=== PATIENT | male | born 1990 | race Caucasian/White ===

== ENCOUNTER 2021-09-18 17:09 | Emergency (ER) | payer BC ==
--- NOTE | 2021-09-18 19:03 | EDM.PDOCBH ---
ED HPI GENERAL MEDICAL PROBLEM - General Chief Complaint: Behavioral/Psych Stated Complaint: SUICIDAL Time Seen by Provider: 09/18/21 17:25 Source of Information: Reports: Patient History Limitations: Reports: No Limitations - History of Present Illness INITIAL COMMENTS - FREE TEXT/NARRATIVE: c/o suicidal ideation pt states he planned to shot himself but "something kept me from doing it," he texted his who called police police found a gun in his car and confiscated other guns from his house, police bring him here pt has had suicidal thought in the past altho not acted on them as he did today his filed for divorce this week he has gone to counseling 8-10x in the past 6m at [facility] in [place] altho not in past 2m as his counselor had surgery, he has no appointment coming up his had gone with him initially, it was her idea, yet stopped going because she was not sure they could afford it pt has 3 children: girl 6 yo, boy 4 yo, girl 2 yo pt's parents when he was 6 yo, he thinks about his son who looks like him and is now going through the same experience of parents which he found to be quite painful 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, 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, 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 for a ivey prior to that he states that he does not feel safe his PCP began citalopram 3m ago, initially 10 mg/d, then inc'd to 20 mg/d, he did not take it the past 2 days "for some reason" he had COVID 1m ago, sick for 3-4d with fever and malaise and myalgias, no sxs now, not had the COVID vax he says he has issues with anger and lying which he "is working on" he used to chew tobacco and would then lie to his when she asked and say he was not he stopped drinking alcohol 1.5m ago, no cigs/street drugs - Related Data Allergies Allergy/AdvReac Type Severity Reaction Status Date / Time No Known Allergies Allergy Verified 09/18/21 18:22 Home Meds: Home Meds Omeprazole 20 mg PO DAILY 09/19/21 [History] hydrOXYzine pamoate [Hydroxyzine Pamoate] 50 mg PO Q6H PRN 09/19/21 [History] Past Medical History - Past Health History Medical/Surgical History: Denies Medical/Surgical History Social & Family History - Living Situation & Occupation Living situation: Reports: ED ROS GENERAL - Review of Systems Review Of Systems: See Below Constitutional: Reports: No Symptoms HEENT: Reports: No Symptoms Respiratory: Reports: No Symptoms Cardiovascular: Reports: No Symptoms Endocrine: Reports: No Symptoms GI/Abdominal: Reports: No Symptoms : Reports: No Symptoms Musculoskeletal: Reports: No Symptoms Skin: Reports: No Symptoms Neurological: Reports: No Symptoms Psychiatric: Reports: Suicidal Ideation Hematologic/Lymphatic: Reports: No Symptoms Immunologic: Reports: No Symptoms ED EXAM, BEHAVIORAL HEALTH - Physical Exam Exam: See Below Exam Limited By: No Limitations General Appearance: Alert, WD/WN, Other (conversant, answers questions, does not appear evasive, rubbing his hands, mildly anxious) Ears: Hearing Grossly Normal Throat/Mouth: Normal Inspection, Normal Voice Head: Atraumatic, Normocephalic Neck: Normal Inspection, Supple, Non-Tender, Full Range of Motion. No: Lymphadenopathy (R), Lymphadenopathy (L) Respiratory/Chest: No Respiratory Distress, Lungs Clear, Normal Breath Sounds, No Accessory Muscle Use, Chest Non-Tender Cardiovascular: Regular Rate, Rhythm, No Edema, No Gallop, No JVD, Gallop/S3 GI/Abdominal: Soft, Non-Tender, No Distention Back Exam: Normal Inspection, Full Range of Motion Extremities: Normal Inspection, Normal Range of Motion, Non-Tender, No Pedal Edema Neurological: Alert, CN II-XII Intact, Normal Gait, No Motor/Sensory Deficits, Oriented x 3 Psychiatric: Alert, Suicidal Plan, Suicidal Thoughts, Other (rather flat affect). No: Incoherent, Tearful, Agitated, Inattentive, Non-Communicative, Tangential Thoughts, Auditory Hallucinations, Visual Hallucinations, Grandiose Thoughts, Pressured Speech, Paranoid Thoughts #1 Interpretation EKG Date: 09/18/21 Time: 20:50 Rhythm: NSR Rate (Beats/Min): 81 [place]: Normal P-Wave: Present QRS: Normal Comparison: NA - No Prior EKG (normal EKG, no ST/ischemic changes) COURSE, BEHAVIORAL HEALTH COMP - Course Vital Signs: Last Vital Signs Temp 37.1 C 09/19/21 11:30 Pulse 86 09/19/21 11:30 Resp 16 11/06/21 11:30 BP 149/93 H 09/19/21 11:30 Pulse Ox 98 09/19/21 11:30 Orders, Labs, Meds: Active Orders 24 hr Category Date Time Status Pantoprazole [ProTONIX] Med 09/19/21 06:00 Active 40 mg PO 0600 EKG 12 Lead [EK] Routine Ther 09/18/21 18:43 Ordered Medication Orders Pantoprazole Sodium (Pantoprazole 40 Mg Tab.Cr) 40 mg PO 0600 JASPREET Last Admin: 09/19/21 10:17 Dose: 40 mg Documented by: GRUPO Laboratory Tests 09/18/21 09/18/21 09/18/21 Range/Units 19:05 19:12 19:12 WBC 8.5 (3.2-10.1) x10-3/uL RBC 5.23 (3.90-5.90) x10(6)uL Hgb 15.1 (12.9-17.7) g/dL Hct 45.2 (38.3-50.1) % MCV 86.4 (80.8-98.7) fL MCH 28.9 (27.0-33.3) pg MCHC 33.5 (28.7-35.3) g/dL RDW 13.1 (12.4-15.0) % Plt Count 228 (117-477) x10(3)uL MPV 8.5 (6.7-11.0) fL Neut % (Auto) 69.7 (40.3-71.8) % Lymph % (Auto) 22.4 (15.8-45.3) % [place] % (Auto) 6.6 (5.5-15.2) % Eos % (Auto) 1.0 (0.1-6.8) % Baso % (Auto) 0.3 (0.3-3.8) % Neut # (Auto) 5.9 (1.7-6.9) x10-3/uL Lymph # (Auto) 1.9 (0.5-4.5) x10-3/uL [place] # (Auto) 0.6 (0.0-1.2) x10-3/uL Eos # (Auto) 0.1 (0.0-0.6) x10-3/uL Baso # (Auto) 0.0 (0.0-0.3) x10-3/uL Sodium 142 (135-145) mmol/L Potassium 3.7 (3.5-5.3) mmol/L Chloride 103 (100-110) mmol/L Carbon Dioxide 32 (21-32) mmol/L BUN 9 (7-18) mg/dL Creatinine 0.9 (0.70-1.30) mg/dL Est Cr Clr Drug Dosing TNP Estimated GFR (MDRD) > 60 (>60) BUN/Creatinine Ratio 10.0 (9-20) Glucose 98 (80-116) mg/dL Calcium 9.0 (8.6-10.2) mg/dL Total Bilirubin 0.5 (0.1-1.3) mg/dL AST 17 (5-25) IU/L ALT 31 (12-36) U/L Alkaline Phosphatase 76 (56-112) IU/L Troponin I (4.0-60.3) pg/mL C-Reactive Protein (0.5-0.9) mg/dL Total Protein 8.3 H (6.0-8.0) g/dL Albumin 4.6 (3.5-5.2) g/dL Globulin 3.7 g/dL Albumin/Globulin Ratio 1.2 TSH, Ultra Sensitive (0.36-3.74) IU/mL Urine Color (YELLOW) Urine Appearance (CLEAR) Urine pH (5.0-6.5) Ur Specific [place] (1.010-1.025) Urine Protein (NEGATIVE) mg/dL Urine Glucose (UA) (NORMAL) mg/dL Urine Ketones (NEGATIVE) mg/dL Urine Occult Blood (NEGATIVE) Urine Nitrite (NEGATIVE) Urine Bilirubin (NEGATIVE) Urine Urobilinogen (NEGATIVE) mg/dL Ur Leukocyte Esterase (NEGATIVE) Urine RBC (0-5) Urine WBC (0-5) Ur Squamous Epith Cells (NS,R,O) Urine Bacteria (NS) Salicylates 0.9 L (<2.8) mg/dL Urine Opiates Screen (NEGATIVE) Ur Buprenorphine Scrn (NEGATIVE) Ur Oxycodone Screen (NEGATIVE) Urine Methadone Screen (NEGATIVE) Ur Propoxyphene Screen (NEGATIVE) Acetaminophen < 2 L (<2) ug/mL Ur Barbiturates Screen (NEGATIVE) Ur Tricyclics Screen (NEGATIVE) Ur Phencyclidine Scrn (NEGATIVE) Ur Amphetamine Screen (NEGATIVE) U Methamphetamines Scrn (NEGATIVE) U Benzodiazepines Scrn (NEGATIVE) U Cocaine Metab Screen (NEGATIVE) U Marijuana (THC) Screen (NEGATIVE) Ethyl Alcohol (<0.03) % SARS-CoV-2 RNA (DEBBI) Positive H (NEGATIVE) 09/18/21 09/18/21 09/18/21 Range/Units 19:12 20:25 20:25 WBC (3.2-10.1) x10-3/uL RBC (3.90-5.90) x10(6)uL Hgb (12.9-17.7) g/dL Hct (38.3-50.1) % MCV (80.8-98.7) fL MCH (27.0-33.3) pg MCHC (28.7-35.3) g/dL RDW (12.4-15.0) % Plt Count (117-477) x10(3)uL MPV (6.7-11.0) fL Neut % (Auto) (40.3-71.8) % Lymph % (Auto) (15.8-45.3) % [place] % (Auto) (5.5-15.2) % Eos % (Auto) (0.1-6.8) % Baso % (Auto) (0.3-3.8) % Neut # (Auto) (1.7-6.9) x10-3/uL Lymph # (Auto) (0.5-4.5) x10-3/uL [place] # (Auto) (0.0-1.2) x10-3/uL Eos # (Auto) (0.0-0.6) x10-3/uL Baso # (Auto) (0.0-0.3) x10-3/uL Sodium (135-145) mmol/L Potassium (3.5-5.3) mmol/L Chloride (100-110) mmol/L Carbon Dioxide (21-32) mmol/L BUN (7-18) mg/dL Creatinine (0.70-1.30) mg/dL Est Cr Clr Drug Dosing Estimated GFR (MDRD) (>60) BUN/Creatinine Ratio (9-20) Glucose (80-116) mg/dL Calcium (8.6-10.2) mg/dL Total Bilirubin (0.1-1.3) mg/dL AST (5-25) IU/L ALT (12-36) U/L Alkaline Phosphatase (56-112) IU/L Troponin I < 4.0 L (4.0-60.3) pg/mL C-Reactive Protein < 0.2 L (0.5-0.9) mg/dL Total Protein (6.0-8.0) g/dL Albumin (3.5-5.2) g/dL Globulin g/dL Albumin/Globulin Ratio TSH, Ultra Sensitive 0.67 (0.36-3.74) IU/mL Urine Color Yellow (YELLOW) Urine Appearance Clear (CLEAR) Urine pH 6.0 (5.0-6.5) Ur Specific [place] 1.025 (1.010-1.025) Urine Protein Negative (NEGATIVE) mg/dL Urine Glucose (UA) Normal (NORMAL) mg/dL Urine Ketones Negative (NEGATIVE) mg/dL Urine Occult Blood Negative (NEGATIVE) Urine Nitrite Negative (NEGATIVE) Urine Bilirubin Negative (NEGATIVE) Urine Urobilinogen 1 H (NEGATIVE) mg/dL Ur Leukocyte Esterase Negative (NEGATIVE) Urine RBC 0-5 (0-5) Urine WBC 0-5 (0-5) Ur Squamous Epith Cells Rare (NS,R,O) Urine Bacteria Occasional H (NS) Salicylates (<2.8) mg/dL Urine Opiates Screen Negative (NEGATIVE) Ur Buprenorphine Scrn Negative (NEGATIVE) Ur Oxycodone Screen Negative (NEGATIVE) Urine Methadone Screen Negative (NEGATIVE) Ur Propoxyphene Screen Negative (NEGATIVE) Acetaminophen (<2) ug/mL Ur Barbiturates Screen Negative (NEGATIVE) Ur Tricyclics Screen Negative (NEGATIVE) Ur Phencyclidine Scrn Negative (NEGATIVE) Ur Amphetamine Screen Negative (NEGATIVE) U Methamphetamines Scrn Negative (NEGATIVE) U Benzodiazepines Scrn Negative (NEGATIVE) U Cocaine Metab Screen Negative (NEGATIVE) U Marijuana (THC) Screen Negative (NEGATIVE) Ethyl Alcohol < 0.03 (<0.03) % SARS-CoV-2 RNA (DEBBI) (NEGATIVE) Medications Generic Name Dose Route Start Last Admin Trade Name Freq PRN Reason Stop Dose Admin Pantoprazole Sodium 40 mg 09/19/21 06:00 09/19/21 10:17 Pantoprazole 40 Mg Tab.Cr PO 40 mg 0600 JASPREET Administration Re-Assessment/Re-Exam: Oly from [facility] did an assessment, thinks pt needs an admission, says "he put the bullet in the gun for a reason" 09-19-21 at 12:45p, accepted by Vivek Voss, pt has been cooperative Departure - Departure Time of Disposition: 13:07 Disposition: DC/Tfer to Psych Hosp/Unit 65 Condition: Serious Clinical Impression: Suicide attempt, Suicidal ideation, Stress due to marital problems - Discharge Information *PRESCRIPTION DRUG MONITORING PROGRAM REVIEWED*: Not Applicable *COPY OF PRESCRIPTION DRUG MONITORING REPORT IN PATIENT DAMARIS: Not Applicable Referrals: Patricia Mckoy PA-C [Primary Care Provider] - Forms: ED Department Discharge Sepsis Event Note (ED) - Focused Exam Vital Signs: Vital Signs Temp Pulse Resp BP Pulse Ox 09/19/21 11:30 37.1 C 86 16 149/93 H 98 - My Orders Last 24 Hours: My Active Orders 09/18/21 18:43 EKG 12 Lead [EK] Routine 09/19/21 06:00 Pantoprazole [ProTONIX] 40 mg PO 0600 - Assessment/Plan Last 24 Hours: My Active Orders 09/18/21 18:43 EKG 12 Lead [EK] Routine 09/19/21 06:00 Pantoprazole [ProTONIX] 40 mg PO 0600
[2021-09-18 19:56] LABS: ACETAMINOPHEN < 2 ug/mL (<2)
--- NOTE | 2021-09-18 22:20 | EDM.PDOC ---
ED HPI GENERAL MEDICAL PROBLEM - General Chief Complaint: Behavioral/Psych Stated Complaint: SUICIDAL Time Seen by Provider: 09/18/21 17:25 Source of Information: Reports: Patient History Limitations: Reports: No Limitations, Other (NOTE: this is an inadvertent duplicate of another note for the same date, see that date for details) - History of Present Illness INITIAL COMMENTS - FREE TEXT/NARRATIVE: c/o suicidal ideation pt states he planned to shot himself but "something kept me from doing it," he texted his who called police police found a gun in his car and confiscated other guns from his house, police bring him here pt has had suicidal thought in the past altho not acted on them as he did today his filed for divorce this week he has gone to counseling 8-10x in the past 6m at 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 prior to that he states that he does not feel safe his PCP began citalopram 3m ago, initially 10 mg/d, then inc'd to 20 mg/d, he did not take it the past 2 days "for some reason" he had COVID 1m ago, sick for 3-4d with fever and malaise and myalgias, no sxs now, not had the COVID vax he says he has issues with anger and lying which he "is working on" he used to chew tobacco and would then lie to his when she asked and say he was not he stopped drinking alcohol 1.5m ago, no cigs/street drugs - Related Data Allergies Allergy/AdvReac Type Severity Reaction Status Date / Time No Known Allergies Allergy Verified 09/18/21 18:22 Home Meds: Home Meds Omeprazole 20 mg PO DAILY 09/19/21 [History] hydrOXYzine pamoate [Hydroxyzine Pamoate] 50 mg PO Q6H PRN 09/19/21 [History] Past Medical History - Past Health History Medical/Surgical History: Denies Medical/Surgical History Psychiatric History: Reports: Anxiety, Depression - Infectious Disease History Infectious Disease History: Reports: Chicken Pox Social & Family History - Tobacco Use Tobacco Use Status *Q: Current Every Day Tobacco User Years of Tobacco use: 1 Packs/Tins Daily: 0.5 - Caffeine Use Caffeine Use: Reports: Coffee, Soda, Tea - Recreational Drug Use Recreational Drug Use: No - Living Situation & Occupation Living situation: Reports: ED ROS GENERAL - Review of Systems Review Of Systems: See Below (this is a duplicate note, see other note) ED EXAM, GENERAL - Physical Exam Exam: See Below Exam Limited By: No Limitations General Appearance: Alert, WD/WN, Other (conversant, answers questions, does not appear evasive, rubbing his hands, mildly anxious) Ears: Hearing Grossly Normal Throat/Mouth: Normal Inspection, Normal Voice Head: Atraumatic, Normocephalic Neck: Normal Inspection, Supple, Non-Tender, Full Range of Motion. No: Lymphadenopathy (R), Lymphadenopathy (L) Respiratory/Chest: No Respiratory Distress, Lungs Clear, Normal Breath Sounds, No Accessory Muscle Use, Chest Non-Tender Cardiovascular: Regular Rate, Rhythm, No Edema, No Gallop, No JVD, Gallop/S3 GI/Abdominal: Soft, Non-Tender, No Distention Back Exam: Normal Inspection, Full Range of Motion Extremities: Normal Inspection, Normal Range of Motion, Non-Tender, No Pedal Edema Course - Vital Signs Last Recorded V/S: Last Vital Signs Temp 37.1 C 09/19/21 11:30 Pulse 86 09/19/21 11:30 Resp 16 09/19/21 11:30 BP 149/93 H 09/19/21 11:30 Pulse Ox 98 09/19/21 11:30 - Orders/Labs/Meds Orders: Active Orders 24 hr Category Date Time Status Pantoprazole [ProTONIX] Med 09/19/21 06:00 Active 40 mg PO 0600 EKG 12 Lead [EK] Routine Ther 09/18/21 18:43 Ordered Medication Orders Pantoprazole Sodium (Pantoprazole 40 Mg Tab.Cr) 40 mg PO 0600 JASPREET Last Admin: 09/19/21 10:17 Dose: 40 mg Documented by: GRUPO Labs: Laboratory Tests 09/18/21 09/18/21 09/18/21 Range/Units 19:05 19:12 19:12 WBC 8.5 (3.2-10.1) x10-3/uL RBC 5.23 (3.90-5.90) x10(6)uL Hgb 15.1 (12.9-17.7) g/dL Hct 45.2 (38.3-50.1) % MCV 86.4 (80.8-98.7) fL MCH 28.9 (27.0-33.3) pg MCHC 33.5 (28.7-35.3) g/dL RDW 13.1 (12.4-15.0) % Plt Count 228 (117-477) x10(3)uL MPV 8.5 (6.7-11.0) fL Neut % (Auto) 69.7 (40.3-71.8) % Lymph % (Auto) 22.4 (15.8-45.3) % [place] % (Auto) 6.6 (5.5-15.2) % Eos % (Auto) 1.0 (0.1-6.8) % Baso % (Auto) 0.3 (0.3-3.8) % Neut # (Auto) 5.9 (1.7-6.9) x10-3/uL Lymph # (Auto) 1.9 (0.5-4.5) x10-3/uL [place] # (Auto) 0.6 (0.0-1.2) x10-3/uL Eos # (Auto) 0.1 (0.0-0.6) x10-3/uL Baso # (Auto) 0.0 (0.0-0.3) x10-3/uL Sodium 142 (135-145) mmol/L Potassium 3.7 (3.5-5.3) mmol/L Chloride 103 (100-110) mmol/L Carbon Dioxide 32 (21-32) mmol/L BUN 9 (7-18) mg/dL Creatinine 0.9 (0.70-1.30) mg/dL Est Cr Clr Drug Dosing TNP Estimated GFR (MDRD) > 60 (>60) BUN/Creatinine Ratio 10.0 (9-20) Glucose 98 (80-116) mg/dL Calcium 9.0 (8.6-10.2) mg/dL Total Bilirubin 0.5 (0.1-1.3) mg/dL AST 17 (5-25) IU/L ALT 31 (12-36) U/L Alkaline Phosphatase 76 (56-112) IU/L Troponin I (4.0-60.3) pg/mL C-Reactive Protein (0.5-0.9) mg/dL Total Protein 8.3 H (6.0-8.0) g/dL Albumin 4.6 (3.5-5.2) g/dL Globulin 3.7 g/dL Albumin/Globulin Ratio 1.2 TSH, Ultra Sensitive (0.36-3.74) IU/mL Urine Color (YELLOW) Urine Appearance (CLEAR) Urine pH (5.0-6.5) Ur Specific [place] (1.010-1.025) Urine Protein (NEGATIVE) mg/dL Urine Glucose (UA) (NORMAL) mg/dL Urine Ketones (NEGATIVE) mg/dL Urine Occult Blood (NEGATIVE) Urine Nitrite (NEGATIVE) Urine Bilirubin (NEGATIVE) Urine Urobilinogen (NEGATIVE) mg/dL Ur Leukocyte Esterase (NEGATIVE) Urine RBC (0-5) Urine WBC (0-5) Ur Squamous Epith Cells (NS,R,O) Urine Bacteria (NS) Salicylates 0.9 L (<2.8) mg/dL Urine Opiates Screen (NEGATIVE) Ur Buprenorphine Scrn (NEGATIVE) Ur Oxycodone Screen (NEGATIVE) Urine Methadone Screen (NEGATIVE) Ur Propoxyphene Screen (NEGATIVE) Acetaminophen < 2 L (<2) ug/mL Ur Barbiturates Screen (NEGATIVE) Ur Tricyclics Screen (NEGATIVE) Ur Phencyclidine Scrn (NEGATIVE) Ur Amphetamine Screen (NEGATIVE) U Methamphetamines Scrn (NEGATIVE) U Benzodiazepines Scrn (NEGATIVE) U Cocaine Metab Screen (NEGATIVE) U Marijuana (THC) Screen (NEGATIVE) Ethyl Alcohol (<0.03) % SARS-CoV-2 RNA (DEBBI) Positive H (NEGATIVE) 09/18/21 09/18/21 09/18/21 Range/Units 19:12 20:25 20:25 WBC (3.2-10.1) x10-3/uL RBC (3.90-5.90) x10(6)uL Hgb (12.9-17.7) g/dL Hct (38.3-50.1) % MCV (80.8-98.7) fL MCH (27.0-33.3) pg MCHC (28.7-35.3) g/dL RDW (12.4-15.0) % Plt Count (117-477) x10(3)uL MPV (6.7-11.0) fL Neut % (Auto) (40.3-71.8) % Lymph % (Auto) (15.8-45.3) % [place] % (Auto) (5.5-15.2) % Eos % (Auto) (0.1-6.8) % Baso % (Auto) (0.3-3.8) % Neut # (Auto) (1.7-6.9) x10-3/uL Lymph # (Auto) (0.5-4.5) x10-3/uL [place] # (Auto) (0.0-1.2) x10-3/uL Eos # (Auto) (0.0-0.6) x10-3/uL Baso # (Auto) (0.0-0.3) x10-3/uL Sodium (135-145) mmol/L Potassium (3.5-5.3) mmol/L Chloride (100-110) mmol/L Carbon Dioxide (21-32) mmol/L BUN (7-18) mg/dL Creatinine (0.70-1.30) mg/dL Est Cr Clr Drug Dosing Estimated GFR (MDRD) (>60) BUN/Creatinine Ratio (9-20) Glucose (80-116) mg/dL Calcium (8.6-10.2) mg/dL Total Bilirubin (0.1-1.3) mg/dL AST (5-25) IU/L ALT (12-36) U/L Alkaline Phosphatase (56-112) IU/L Troponin I < 4.0 L (4.0-60.3) pg/mL C-Reactive Protein < 0.2 L (0.5-0.9) mg/dL Total Protein (6.0-8.0) g/dL Albumin (3.5-5.2) g/dL Globulin g/dL Albumin/Globulin Ratio TSH, Ultra Sensitive 0.67 (0.36-3.74) IU/mL Urine Color Yellow (YELLOW) Urine Appearance Clear (CLEAR) Urine pH 6.0 (5.0-6.5) Ur Specific [place] 1.025 (1.010-1.025) Urine Protein Negative (NEGATIVE) mg/dL Urine Glucose (UA) Normal (NORMAL) mg/dL Urine Ketones Negative (NEGATIVE) mg/dL Urine Occult Blood Negative (NEGATIVE) Urine Nitrite Negative (NEGATIVE) Urine Bilirubin Negative (NEGATIVE) Urine Urobilinogen 1 H (NEGATIVE) mg/dL Ur Leukocyte Esterase Negative (NEGATIVE) Urine RBC 0-5 (0-5) Urine WBC 0-5 (0-5) Ur Squamous Epith Cells Rare (NS,R,O) Urine Bacteria Occasional H (NS) Salicylates (<2.8) mg/dL Urine Opiates Screen Negative (NEGATIVE) Ur Buprenorphine Scrn Negative (NEGATIVE) Ur Oxycodone Screen Negative (NEGATIVE) Urine Methadone Screen Negative (NEGATIVE) Ur Propoxyphene Screen Negative (NEGATIVE) Acetaminophen (<2) ug/mL Ur Barbiturates Screen Negative (NEGATIVE) Ur Tricyclics Screen Negative (NEGATIVE) Ur Phencyclidine Scrn Negative (NEGATIVE) Ur Amphetamine Screen Negative (NEGATIVE) U Methamphetamines Scrn Negative (NEGATIVE) U Benzodiazepines Scrn Negative (NEGATIVE) U Cocaine Metab Screen Negative (NEGATIVE) U Marijuana (THC) Screen Negative (NEGATIVE) Ethyl Alcohol < 0.03 (<0.03) % SARS-CoV-2 RNA (DEBBI) (NEGATIVE) Meds: Medications Generic Name Dose Route Start Last Admin Trade Name Freq PRN Reason Stop Dose Admin Pantoprazole Sodium 40 mg 09/19/21 06:00 09/19/21 10:17 Pantoprazole 40 Mg Tab.Cr PO 40 mg 0600 [facility] Administration - Re-Assessments/Exams Free Text/Narrative Re-Assessment/Exam: 09/19/21 13:11 this is a duplicate note, see other note, accepted by Vivek Voss at 12:45p Departure - Departure Time of Disposition: 13:10 Disposition: DC/Tfer to Psych Hosp/Unit 65 Reason for Transfer *Q: Other Condition: Serious Clinical Impression: Suicide attempt, Suicidal ideation, Stress due to marital problems Referrals: Patricia Mckoy PA-C [Primary Care Provider] - Forms: ED Department Discharge Sepsis Event Note (ED) - Evaluation Sepsis Screening Result: No Definite Risk - Focused Exam Vital Signs: Vital Signs Temp Pulse Resp BP Pulse Ox 09/19/21 11:30 37.1 C 86 16 149/93 H 98 - My Orders Last 24 Hours: My Active Orders 09/18/21 18:43 EKG 12 Lead [EK] Routine 09/19/21 06:00 Pantoprazole [ProTONIX] 40 mg PO 0600 - Assessment/Plan Last 24 Hours: My Active Orders 09/18/21 18:43 EKG 12 Lead [EK] Routine 09/19/21 06:00 Pantoprazole [ProTONIX] 40 mg PO 0600
[2021-09-19] MEDS ORDERED: Pantoprazole 40 MG Tab.CR PO SCH (06:00)
[2021-09-19 21:56] VITALS: BP 136/91; PULSE 81
== END 2021-09-19 13:55 ==
LOC: FB.ED 17:09
DX: T14.91XA Suicide attempt, initial encounter (principal); U07.1 COVID-19; F43.9 Reaction to severe stress, unspecified; F17.220 Nicotine dependence, chewing tobacco, uncomplicated
CPT/HCPCS: 36415; 80053; 80143; 80179; 80307; 81001; 84443; 84484; 85025; 86140; 87635; 93005; 99285; A9270; U0002